=== PATIENT | female | born 1950 | race Two or more races ===

== ENCOUNTER 2020-09-16 10:58 | Outpatient (CLI) | payer OTHER | END 2020-09-16 11:20 | disposition home or self-care (01) | LOC: MAMO-SONO 10:58 | DX: Z12.31 Encounter for screening mammogram for malignant neoplasm of breast (principal); Z87.898 Personal history of other specified conditions; N64.4 Mastodynia ==

== ENCOUNTER 2022-08-06 12:34 | Emergency (ER) | payer OTHER ==
[~2022-08-06] VITALS: Ht 162.6 cm; Wt 65.8 kg
[2022-08-06] MEDS ORDERED: LOSARTAN POTASS25 MG PO (12:52)
[2022-08-06] MEDS ORDERED: METFORMIN HCL500 M4 PO (12:52)
== END 2022-08-06 16:58 | disposition home or self-care (01) ==
LOC: ER 12:34
DX: S69.82XA Other specified injuries of left wrist, hand and finger(s), initial encounter (principal); W18.39XA Other fall on same level, initial encounter; Y93.89 Activity, other specified; Y92.413 State road as the place of occurrence of the external cause; E11.9 Type 2 diabetes mellitus without complications; Z79.84 Long term (current) use of oral hypoglycemic drugs; I10 Essential (primary) hypertension

== ENCOUNTER 2022-08-08 13:50 | Emergency (ER) | payer OTHER ==
[~2022-08-08] VITALS: Ht 162.6 cm; Wt 65.8 kg
[~2022-08-08 13:50] MED LIST: LOSARTAN POTASS25 MG PO; METFORMIN HCL500 M4 PO
[2022-08-09] MEDS ORDERED: PERCOCET 5-3251 EACH PO (11:28)
[2022-08-09] MEDS ORDERED: DUI500 PO (11:28)
[2022-08-09] MEDS ORDERED: ALEVE220 M1 PO (11:28)
== END 2022-08-08 19:39 | disposition home or self-care (01) ==
LOC: ER 13:50
DX: S52.572A Other intraarticular fracture of lower end of left radius, initial encounter for closed fracture (principal)

== ENCOUNTER 2022-08-09 06:00 | Day surgery (SDC) | payer OTHER ==
[2022-08-09] MEDS ORDERED: DUI500 PO (11:28)
[2022-08-09] MEDS ORDERED: PERCOCET 5-3251 EACH PO (11:28)
[2022-08-09] MEDS ORDERED: ALEVE220 M1 PO (11:28)
== END 2022-08-09 14:25 | disposition home or self-care (01) ==
LOC: CIR.AMB 06:00
PROVIDERS: ATTEND Orthopaedic Surgery
DX: S52.532A Colles' fracture of left radius, initial encounter for closed fracture (principal); S52.692A Other fracture of lower end of left ulna, initial encounter for closed fracture; M81.0 Age-related osteoporosis without current pathological fracture; Z20.822 Contact with and (suspected) exposure to COVID-19; I10 Essential (primary) hypertension; E11.9 Type 2 diabetes mellitus without complications; Z87.891 Personal history of nicotine dependence; Z79.84 Long term (current) use of oral hypoglycemic drugs
CPT/HCPCS: 20902; 25609; 25652; 25101; L8699

== ENCOUNTER → 2022-10-07 | Outpatient (CLI) | payer OTHER ==
[~2022-10-07] MED LIST changes: +ALEVE220 M1 PO; +DUI500 PO; +PERCOCET 5-3251 EACH PO
== END | disposition home or self-care (01) ==
LOC: MAMO-SONO 08:21
PROVIDERS: ATTEND Internal Medicine
DX: Z12.31 Encounter for screening mammogram for malignant neoplasm of breast (principal); N63.0 Unspecified lump in unspecified breast; R10.84 Generalized abdominal pain

== ENCOUNTER → 2024-02-14 | Outpatient (CLI) | payer OTHER | END | disposition home or self-care (01) | LOC: MAMO-SONO 08:27 | PROVIDERS: ATTEND Internal Medicine | DX: D64.9 Anemia, unspecified (principal); Z12.31 Encounter for screening mammogram for malignant neoplasm of breast ==

== ENCOUNTER 2025-04-16 08:00 | Outpatient (CLI) | payer OTHER | END 2025-04-16 08:07 | disposition home or self-care (01) | LOC: MAMO-SONO 08:00 | PROVIDERS: ATTEND Internal Medicine | DX: N64.9 Disorder of breast, unspecified (principal); R92.30 Dense breasts, unspecified ==